=== PATIENT | female | born 1970 | race Caucasian/White ===

== ENCOUNTER 2025-05-10 14:16 | Emergency (ER) | payer MEDICARE, SELFPAY ==
--- OUTSIDE RECORDS SUMMARY | 2025-05-10 14:31 | XMS_ITS | Encounter Summary ---
Author Organization [facility] Address [address] [place] [address] Care Team Providers Care Deep Tissue Massage Therapist Name Role Phone Alma Rosa Baltazar NP Primary Care Provider [phone] Keo Ashley DO Unavailable [phone] Encounter Details Date Type Department Care Team (Late st Contact Info) Description 03/24/2025 Results Follow-Up [facility] - Family Medicine: [place] [address] [address] Alma Rosa Baltazar TRANSPORTATION CLERK [address] [place] [address] Social History Tobacco Use Types Packs/Day Years Used Date Smoking Tobacco: Former Cigarettes 2 30 0 12/31/1988 - 12/31/2018 Smokeless Tobacco: Never Alcohol Use Standard Drinks/Week Comments Not Currently 0 (1 standard drink = 0.6 oz pur e alcohol) Utilities Answer Date Recorded Within the last 12 months, h ave you or your family member you live with been unable to get utilities (heat, electricity) when it was really needed? Yes 02/22/[address] [facility] Safety Screener Answer Date Record ed Do you feel physically and e motionally safe where you currently live? Yes 02/22/2025 Within the past 12 months, h ave you been hit, slapped, kicked or otherwise physically hurt by someone? No 02/22/2025 Within the past 12 months, h ave you been humiliated or emotionally abused in other ways by your partner, ex-partner, or anyone else? No 02/22/2025 Financial Resource Strain Answer Date R ecorded How hard is it for you to pa y for the very basics like food, housing, medications and medical care, and heating? Very hard 02/22/[address] [facility] Food Insecurity Screener Answer Da te Recorded Within the past 12 months, y ou worried that your food would run out before you got the money to buy more? No 02/22/2025 Within the past 12 months, t he food you bought just didn t last and you didn t have money to get more? Yes 02/22/[address] [facility] Transportation Needs Screener Answer Date Recorded Within the last 12 months, h as the lack of transportation kept you from medical appointments, meetings, work, or from getting things needed for daily living? No 02/22/[address] [facility] Housing Stability Screener Answer Date Recorded Do you have housing? No 02/22/2025 Are you worried about losing your housing? No 02/22/2025 Comments No Sex and Gender Information Value Date Recorded Sex Assigned at Not on file Legal Sex Female 12:06 PM MDT Gender Identity Not on file Sexual Orientation Not on file documented as of this encounter Miscellaneous Notes * Result Encounter Note - Alma Rosa Baltazar NP - 03/24/2025 10:50 PM MDT Small amount of fluid noted in the elbow on x-ray. No acute fractures. Old healed distal radius fracture. Posttraumatic changes noted but nothing acute. JML * Result Encounter Note - Alma Rosa Baltazar NP - 03/24/2025 10:50 PM MDT X-ray of the forearm: Refer to elbow x-ray result. documented in this encounter Plan of Treatment Not on file documented as of this encounter Visit Diagnoses Not on filedocumented in this encounter Care Teams Deep Tissue Massage Therapist Relationship Specialty Start Date End Date Alma Rosa Baltazar NP [address] [place] [address] PCP - General Nurse Practitioner 01/02/22 Keo Ashley, DO [address] [place] [address] Resident Sports Medicine 04/05/25 documented as of this encounter
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
--- OUTSIDE RECORDS SUMMARY | 2025-05-10 14:32 | XMS_ITS | Patient Health Record ---
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
--- OUTSIDE RECORDS SUMMARY | 2025-05-10 14:32 | XMS_ITS | Patient Health Record ---
Author Organization [facility] Address [address] [address] Support Name Relationship Address Phone Monique Waite Emergency Contact Unknown Taya Hargrove Guarantor Unknown [phone] Reason For Referral No Information Social History Social History General Social Info Question Answer Notes Tobacco Use: Are you a: never smoker Additional Findings: Tobacco Non-User Current no n-smoker Plan Of Treatment No Information Insurance Providers Payer Name Payer Address Payer Phone Subscriber Number Group Number Insured Name Patient Relationship to Insured Coverage Start Date Coverage End Date MEDICARE [employer] DEPT [address] [place] [id number] [phone] [id number] Taya Hargrove Self - patient is the insured
--- OUTSIDE RECORDS SUMMARY | 2025-05-10 14:32 | XMS_ITS | Clinical Summary ---
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 BLOOD ORDERABLES Final R esult Performing Organization Address [facility] Co de Phone Number [facility] [address] [place] [address], [place] [phone], [facility] * Serum Separator Tube (04/19/2025 9:01 AM MDT) Blood ENTIRE BLOOD VESSEL / Unknown Peripheral Catheter / Unknown 04/19/2025 9:01 AM MDT 04/19/2025 9:04 AM MDT us Rock Rivera NP LAB BLOOD ORDERABLES Final R esult Performing Organization Address [facility] Co de Phone Number [facility] [address] [place] [address], [place] [phone], [facility] * Light Green Gel Tube (04/19/2025 9:01 AM MDT) Blood ENTIRE BLOOD VESSEL / Unknown Peripheral Catheter / Unknown 04/19/2025 9:01 AM MDT 04/19/2025 9:05 AM MDT us Rock Rivera NP LAB BLOOD ORDERABLES Final R esult Performing Organization Address City/[facility] Co de Phone Number [facility] [address] [place] [address], [place] [phone], [facility] * (ABNORMAL) Basic Metabolic Panel (04/19/2025 9:01 AM MDT) SODIUM 139 135 - 144 mmol/L 04/19/2025 9:27 AM MDT [facility] POTASSIUM 3.8 3.5 - 5.5 mmol/L 04/19/2025 9:27 AM MDT [facility] CHLORIDE 107 98 - 107 mmol/L 04/19/2025 9:27 AM MDT [facility] TOTAL CO2 24 22 - 32 mmol/L 04/19/2025 9:27 AM MDT [facility] ANION GAP 8 7 - 15 mmol/L 04/19/2025 9:27 AM MDT [facility] GLUCOSE 103(H) 60 - 100 mg/dL 04/19/2025 9:27 AM [facility] CALCIUM 8.8 8.4 - 10.6 mg/dL 04/19/2025 9:27 AM [facility] BUN 24(H) 7 - 17 mg/dL 04/19/2025 9:27 AM [facility] CREATININE 0.82 0.52 - 1.04 mg/dL 04/19/2025 9:27 AM MDT [facility] GFR 85 >=60 ml/min/1.73 m2 04/19/2025 9:27 AM MDT [facility] Blood ENTIRE BLOOD VESSEL / Unknown Peripheral Catheter / Unknown 04/19/2025 9:01 AM MDT 04/19/2025 9:05 AM MDT us Rock Rivera [employer] AP[employer] LAB BLOOD ORDERABLES Final R esult [facility] [address] [place] [phone], [facility] * XR Forearm 2 vw Left (03/14/2025 2:55 PM MDT) Anatomical Region Laterality Modality Digital Radiogra phy 03/14/2025 3:03 PM MDT Impressions 03/14/2025 3:05 PM MDT Small elbow effusion with no visualized fracture. Narrative 03/14/2025 3:05 PM MDT HISTORY: Left arm pain. COMPARISON: None. TECHNIQUE: Left elbow, 3 views. Left forearm 2 views FINDINGS: Small elbow effusion. No visualized fracture, dislocation, subluxation or osseous lesion. The tricompartmental joint spaces of the elbow are unremarkable. Old healed distal radius fracture. Posttraumatic changes of the first carpometacarpal and triscaphe joints. Procedure Note Holger Salas, DO - 03/14/2025 HISTORY: Left arm pain. COMPARISON: None. TECHNIQUE: Left elbow, 3 views. Left forearm 2 views FINDINGS: Small elbow effusion. No visualized fracture, dislocation, subluxation orosseous lesion. The tricompartmental joint spaces of the elbow areunremarkable. Old healed distal radius fracture. Posttraumatic changes of the firstcarpometacarpal and triscaphe joints. IMPRESSION: Small elbow effusion with no visualized fracture. Seipdeh Conn PA-C IMG DIAGNOSTIC IMAGING ORDER RIVAS Final Result * XR Elbow 3 Or More vw Left (03/14/2025 2:55 PM MDT) Anatomical Region Laterality Modality Arm, Elbow Digital Radiogra phy 03/14/2025 3:03 PM MDT Impressions 03/14/2025 3:05 PM MDT Small elbow effusion with no visualized fracture. Narrative 03/14/2025 3:05 PM MDT HISTORY: Left arm pain. COMPARISON: None. TECHNIQUE: Left elbow, 3 views. Left forearm 2 views FINDINGS: Small elbow effusion. No visualized fracture, dislocation, subluxation or osseous lesion. The tricompartmental joint spaces of the elbow are unremarkable. Old healed distal radius fracture. Posttraumatic changes of the first carpometacarpal and triscaphe joints. Procedure Note Holger Salas, DO - 03/14/2025 HISTORY: Left arm pain. COMPARISON: None. TECHNIQUE: Left elbow, 3 views. Left forearm 2 views FINDINGS: Small elbow effusion. No visualized fracture, dislocation, subluxation orosseous lesion. The tricompartmental joint spaces of the elbow areunremarkable. Old healed distal radius fracture. Posttraumatic changes of the firstcarpometacarpal and triscaphe joints. IMPRESSION: Small elbow effusion with no visualized fracture. Sepideh Conn PA-C IMPatti DIAGNOSTIC IMAGING ORDER RIVAS Final Result * CT Chest Without IV Contrast Low Dose Generic (02/13/2024 9:30 AM MDT) Anatomical Region Laterality Modality Chest Computed Tomogra phy 02/13/2024 9:37 AM MDT Impressions 02/13/2024 9:44 AM MDT Several sub-6 mm solid pulmonary nodules of low suspicion, some are stable and others are out of [id number] on prior. Multiple solid nodules, largest nodule < 6 mm: -LOW RISK for lung cancer: No routine follow-up is recommended. -HIGHER RISK (e.g. current or past smokers, suspicious nodule morphology): Optional CT may be performed at 12 months. * Note: Use most suspicious nodule as guide to management. 2017 Fleischner Society Guidelines. Recommendations do not apply to patients younger than 35 years, immunocompromised patients, or patients with known or suspected malignancy. Narrative 02/13/2024 9:44 AM MDT HISTORY: Incidental lung nodule. COMPARISON: 01/21/2023 CT of the abdomen and pelvis TECHNIQUE: Noncontrast CT images were obtained of the chest. Automated exposure control was used. FINDINGS: Thoracic inlet: Normal. Chest wall: Bilateral breast implants. Heart/pericardium: Normal. Great vessels: Normal. Mediastinum/gertrude: Normal. Lungs/pleura: The central airways are clear. Mild diffuse bronchial wall thickening in keeping with bronchitis. Mild bibasilar atelectasis/scarring. Few sub-6 mm solid pulmonary nodules seen on prior CT of the abdomen and pelvis are stable. Few additional sub-6 mm solid pulmonary nodules are seen, out of [id number] on prior (see arrowed images and flagged image series). No pleural effusion or pneumothorax. Upper abdomen: Normal. Musculoskeletal: Osseous degenerative changes. Scoliotic deformity. Thoracolumbar spinal fusion hardware. Mild T3 superior endplate compression deformity. Procedure Note Elva Evangelista MD - 02/13/2024 HISTORY: Incidental lung nodule. COMPARISON: 01/21/2023 CT of the abdomen and pelvis TECHNIQUE: Noncontrast CT images were obtained of the chest. Automatedexposure control was used. FINDINGS: Thoracic inlet: Normal. Chest wall: Bilateral breast implants. Heart/pericardium: Normal. Great vessels: Normal. Mediastinum/gertrude: Normal. Lungs/pleura: The central airways are clear. Mild diffuse bronchial wallthickening in keeping with bronchitis. Mild bibasilaratelectasis/scarring. Few sub-6 mm solid pulmonary nodules seen on prior CT of the abdomen andpelvis are stable. Few additional sub-6 mm solid pulmonary nodules areseen, out of [id number] on prior (see arrowed images and flagged imageseries). No pleural effusion or pneumothorax. Upper abdomen: Normal. Musculoskeletal: Osseous degenerative changes. Scoliotic deformity.Thoracolumbar spinal fusion hardware. Mild T3 superior endplatecompression deformity. IMPRESSION: Several sub-6 mm solid pulmonary nodules of low suspicion, some are stableand others are out of [id number] on prior. Multiple solid nodules, largest nodule < 6 mm: -LOW RISK for lung cancer: No routine follow-up is recommended. -HIGHER RISK (e.g. current or past smokers, suspicious nodule morphology):Optional CT may be performed at 12 months. * Note: Use most suspicious nodule as guide to management. 2017 [facility] Guidelines. Recommendations do not apply to patients younger than35 years, immunocompromised patients, or patients with known or suspectedmalignancy. Alma Rosa Baltazar NP IMG CT ORDERABLES Final Resul t * Hepatitis C Virus Ab w/reflex to HCV by Quantitative NAAT (11/29/2022 10:20 AM MDT) HEPATITIS C ANTIBODY Negative Negative, No Result 11/29/2022 6:40 PM T [facility] Blood ENTIRE BLOOD VESSEL / Unknown Venipuncture / Unknown 11/29/2022 10:20 AM MDT 11/29/2022 10:20 AM MDT Kushal Valles PA-C LAB BLOOD ORDERABLES Concepcion kailyn Result [facility] [address] [place] [address], [place] from Last 3 Months or Most Recently Relevant to Health Maintenance Insurance MEDICARE MEDICARE Advance Directives For more information, please contact: [phone] * Full Code (Latest Code Status on File) Date Activated Date Inactivated Comments 02/22/2025 11:19 AM Care Teams Banking Pin Adjuster Relationship Specialty Start Date End Date Alma Rosa Baltazar, [employer] AP[employer] [address] [place] [address] PCP - General Nurse Practitioner 01/02/22 Keo Ashley DO [address] [place] [address] Resident Sports Medicine 04/05/25
[2025-05-10 14:38] VITALS: BP 131/93; PULSE 101; RESP 18; TEMP 36.7; O2SAT 96
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
[2025-05-10] MEDS: orphenadrine 30 mg/mL Inj 2 mL 60 MG IM (17:59)
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
== END 2025-05-10 19:40 | disposition home or self-care (01) ==
PROVIDERS: Emergency Provider Physician Assistant
DX: M54.50 Low back pain, unspecified (principal)
CPT/HCPCS: 72040; 72072; 72100; 96372; 99284; J1885; J2360